=== PATIENT | female | born 1940 | race Caucasian/White ===

== ENCOUNTER → 2019-10-27 11:18 | Outpatient (BNVA) | payer MEDICARE, MEDICAID, SELFPAY | PROVIDERS: Family Provider Internal Medicine; PCP Internal Medicine; Visit Provider Internal Medicine Rheumatology | DX: M06.09 Rheumatoid arthritis without rheumatoid factor, multiple sites (principal); M15.9 Polyosteoarthritis, unspecified; E11.9 Type 2 diabetes mellitus without complications; I10 Essential (primary) hypertension; R77.8 Other specified abnormalities of plasma proteins; Z79.4 Long term (current) use of insulin | CPT/HCPCS: 99213 ==

== ENCOUNTER 2019-11-22 08:28 | Outpatient (CLI) | payer MEDICARE, MEDICAID, SELFPAY ==
--- NOTE | 2019-11-22 08:43 | CT_ITS ---
WS: [id number] CT PELVIS WITH CONTRAST. HISTORY: SACROCOCCYGEAL DISORDERS, coccygeal pain. TECHNIQUE: Contiguous imaging is performed of the pelvis with contrast. Coronal and sagittal reformat s are reviewed. All CT scans at [facility] use at least one of these dose optimization te chniques: automated exposure control; mA and/or kV adjustment per patient size (includes targeted exa ms where dose is matched to clinical indication); or iterative reconstruction. DLP: 828.12 mGycm COMPARISON: 01/02/2015 Contrast: Visipaque 95 mL IV. No soft tissue mass or free fluid or adenopathy within the pelvis. There is mild muscle atrophy. Exte nsive vascular calcifications in the distal aorta through the iliac arteries into the femoral arterie s. Urinary bladder is minimally distended. Visualized GI tract is negative. Mild bilateral narrowing of the foramen at L4-5 and L5-S1. Mild bilateral hip joint narrowing. No mas s or bone destruction. There is no evidence for osteomyelitis or tract extending to the sacrum. Large soft tissue ulceration described on 01/05/[address]/CT pelvis w con* [id number] IMPRESSION: 1. No soft tissue ulceration or osteomyelitis. 2. Mild muscular atrophy. 3. Severe atherosclerosis involving the iliac and femoral arteries.
[2019-11-22] MEDS: iodixanol 320 mg/mL 100mL Btl IV (09:26)
== END 2019-11-22 08:29 | disposition home or self-care (01) ==
LOC: RADWPI 08:33
PROVIDERS: Family Provider Internal Medicine; PCP Nurse Practitioner Family; Visit Provider Nurse Practitioner Family
DX: M62.50 Muscle wasting and atrophy, not elsewhere classified, unspecified site (principal); I70.209 Unspecified atherosclerosis of native arteries of extremities, unspecified extremity; M53.3 Sacrococcygeal disorders, not elsewhere classified
CPT/HCPCS: 72193; Q9967

== ENCOUNTER → 2019-12-21 15:07 | Outpatient (BNVA) | payer MEDICARE, MEDICAID, SELFPAY | PROVIDERS: Family Provider Internal Medicine; PCP Nurse Practitioner Family; Visit Provider Urology | DX: C67.1 Malignant neoplasm of dome of bladder (principal) | CPT/HCPCS: 81001 ==

== ENCOUNTER → 2020-02-15 13:58 | Outpatient (BNVA) | payer MEDICARE, MEDICAID, SELFPAY | PROVIDERS: Family Provider Internal Medicine; PCP Nurse Practitioner Family; Visit Provider Internal Medicine Rheumatology | DX: M06.09 Rheumatoid arthritis without rheumatoid factor, multiple sites (principal); Z79.899 Other long term (current) drug therapy | CPT/HCPCS: 36415; 80076; 82565; 85025; 85651 ==

== ENCOUNTER → 2020-03-27 13:23 | Outpatient (BNVA) | payer MEDICARE, MEDICAID, SELFPAY | PROVIDERS: Family Provider Internal Medicine; PCP Nurse Practitioner Family; Visit Provider Internal Medicine Rheumatology | DX: M06.00 Rheumatoid arthritis without rheumatoid factor, unspecified site (principal); Z79.899 Other long term (current) drug therapy; M19.041 Primary osteoarthritis, right hand; M19.042 Primary osteoarthritis, left hand; N18.9 Chronic kidney disease, unspecified | CPT/HCPCS: 99214 ==

== ENCOUNTER 2020-04-09 13:04 | Outpatient (CLI) | payer MEDICARE, MEDICAID, SELFPAY ==
[2020-04-09 15:28] LABS: Basophils % 0.5 %; Eosinophils # 0.1 10^3/uL (0.0-0.8); Eosinophils % 1.7 %; Hematocrit 34.4 % (37.0-47.0); Hemoglobin 10.6 g/dL (11.5-15.3); Lymphocytes # 1.5 10^3/uL (0.8-4.8); Lymphocytes % 19.7 %; Mean Corpuscular HGB Conc 30.8 g/dL (30.0-36.0); Mean Corpuscular Hemoglobin 28.8 pg (28.0-34.0); Mean Corpuscular Volume 93.5 fL (81-99); Mean Platelet Volume 9.1 fL (7.4-10.4); Monocytes # 0.5 10^3/uL (0.2-0.9); Monocytes % 7.1 %; Neutrophils # 5.4 10^3/uL (1.8-7.7); Neutrophils % 70.6 %; Nucleated Red Blood Cells % 0 %; Platelet Count 223 10^3/cmm (130-400); Red Blood Count 3.68 10^6/uL (4.1-5.3); Red Cell Distribution Width 13.2 % (12.1-15.1); White Blood Count 7.6 10^3/uL (4.0-10.0)
[2020-04-09 16:11] LABS: Alanine Aminotransferase 24 U/L (0-33); Albumin Level 3.9 g/dL (3.5-5.2); Alkaline Phosphatase 83 IU/L (35-105); Anion Gap 14.3 (5-19); Aspartate Amino Transferase 30 U/L (0-32); Blood Urea Nitrogen 34 mg/dL (8-23); Calcium 9.9 mg/dL (8.5-10.5); Carbon Dioxide 23 mmol/L (22-29); Chloride 108 mmol/L (98-107); Globulin 2.9 g/dL (1.3-4.6); Glucose 91 mg/dL (65-115); Immunoglobulin IGA 249 mg/dL (70-400); Immunoglobulin IGG 961 mg/dL (700-1600); Immunoglobulin IGM 328 mg/dL (40-230); Lactate Dehydrogenase 218 U/L (135-214); Osmolality Calculated 287 mOsm/kg (285-295); Potassium 5.3 mmol/L (3.5-5.1); Sodium 140 mmol/L (136-145); Total Bilirubin 0.2 mg/dL (0.15-1.2); Total Protein 6.8 g/dL (6.6-8.7)
[2020-04-09 16:27] LABS: Erythrocyte Sedimentation Rate 63 mm/hr (0-15)
[2020-04-09 16:38] LABS: Iron 87 ug/dL (37-145); Percent Saturation 30.1 % (20-50); Total Iron Binding Capacity 289 mcg/dl; Unsaturated Iron Binding 202 ug/dL (112-347)
[2020-04-09 16:54] LABS: Vitamin B12 653 pg/mL (232-1245)
--- NOTE | 2020-04-09 18:02 | ONC CON_ITS ---
Dr. Vicente New Patient Note Patient: Vika Nugent Unit #: [id number]: 1940 Dicatated By: Florencio Vicente M.D.Date of Visit: Apr 09, 2020 Onc MED New Patient/Consult Referring Physician: Florencio Vicente M.D. Chief Complaint: Monoclonal gammopathy. 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 She has longstanding rheumatoid arthritis which has been adequately managed with hydroxychloroquine. She also has degenerative arthritis. She has a history of superficial bladder cancer, initially diagnosed and treated with TURBT in August 2005. She has had multiple recurrences treated with fulguration. In 2010 she underwent lumpectomy/radiation for an invasive cancer of the right breast which was stage IA (T1a, N0, M0), ER/ND positive and HER-2./zee negative. Her other medical illnesses include hypertension, dyslipidemia, type 2 diabetes, and coronary artery disease with cardiomyopathy. In 2017, during the course of her follow-up in rheumatology clinic, she was noted to have some decline in her renal function. Her serum protein electrophoresis in August 2019 reported a poorly defined band, possibly an M spike, migrating in the gamma region. It quantitated at 0.2 g/dL. The serum immunofixation, though, reported no detectable monoclonal protein. Her creatinine at that point was up to 1.4 mg/dL. She was slightly anemic, hemoglobin 11.5 g. She has been feeling pretty good generally. She says her energy fluctuates, but she is able to do light work. ECOG score is 1. Her appetite has not been as good lately. Her weight is down a few pounds. She does not have fever or night sweats. She has some allergy related sinus symptoms. She does not complain of shortness of breath, cough, or chest pain. She has no GI or complaints. She has joint pain, mainly in the hands and shoulders. She also has lower back pain. She had sustained a left hip injury a couple of years ago, and that tends to hurt if she walks a lot. She reports having numbness/tingling in her feet. Past Medical History: Her medical history includes cardiomyopathy, chronic kidney disease, coronary artery disease, degenerative arthritis, history of breast cancer, hypertension, left bundle branch block, rheumatoid arthritis, superficial bladder cancer, and type II diabetes. Past Surgical History: Her surgical/procedural history includes bilateral cataract excisions, cystoscopy with fulguration of recurrent bladder cancer on multiple occasions, carpal tunnel release on the right in 2018, excision of pilonidal cyst in 2013, insertion of [place] drain bilaterally for persistent pleural effusion in 2013, right breast lumpectomy with axillary sentinel lymph node biopsy in 2010, coronary angioplasty/stent placement in 2004, TURBT for superficial bladder cancer in 2004, and hysterectomy with bilateral salpingo-oophorectomy in 1963. Medications: Atorvastatin Calcium 1 Tablet (of 40 mg) Oral daily, Calcium 1 Tablet daily, Furosemide (20 mg) Tablet Oral Take as Directed, Hydroxychloroquine Sulfate 1 Tablet (of 200 mg) Oral daily, Isosorbide Mononitrate 1 Tablet (of 10 mg) Oral b.i.d., Losartan Potassium 1 Tablet (of 100 mg) Oral daily, methIMAzole 1 Tablet (of 5 mg) Oral daily, Metoprolol 0.5 Tablet (of 100 mg) b.i.d., Multivitamin 1 Tablet Oral daily, Spironolactone 1 Tablet (of 25 mg) Oral daily, Tresiba 30 Units (of 100 Units/mL) Subcutaneous daily, Vitamin C 1 Capsule (of 500 mg) Oral daily Allergies: ACTOS, Fenofibrate, and metroNIDAZOLE. Social History: Ms. Nugent is . She is a non-smoker. She does not drink alcohol. Family History: Father age 65. She is not certain of the cause. She thinks it may have been some type of arterial embolism. Mother with complications of diabetes at age 73. A sister and 2 brothers also had diabetes. One sister of breast cancer at age 52. A son of renal cell cancer. Review Of Symptoms: Constitutional - She is feeling okay. She does some light work at home. Her appetite is good and weight is stable. No fever, night sweats, or hot flashes. ECOG score is 1, Eyes - No change in vision, ENMT - No hearing loss or tinnitus. She has some allergy related sinus symptoms. No mouth sores. No sore throat or difficulty swallowing, Hematologic/Lymphatic - She has some bruising, Respiratory - No shortness of breath. No cough. No pleuritic pain or hemoptysis, Cardiovascular - No angina pain. No palpitations, Gastrointestinal - No nausea or vomiting. No heartburn or acid reflux. No diarrhea or constipation. No blood in the stool or black stools, Genitourinary (F) - No dysuria or hematuria. No urinary frequency. No urgency or incontinence, Musculoskeletal - She is having joint pain and she has pain in her lower back, Integumentary - No skin complications, Neurologic - No headache. She sometimes has dizziness when she first wakes up. She has some numbness and tingling in her hands and feet. No other focal neurologic symptoms, Psychiatric - No anxiety or depression. No insomnia. Vital Signs: Performed on Apr 09, 2020 13:56: 5, 38.52 (HIGH), 2.05 sq.m, 64.00 in, 97 %, 66 /min, 24 /min, 140/59 mm(hg), 99.1 F (HIGH), and 224.4 lbs (LOW). Physical Examination: Constitutional - She looks pretty good generally, Eyes - Sclerae nonicteric. Conjunctivae clear, ENMT - No lesions noted in the oral cavity, Neck - No mass or thyromegaly, Hematologic/Lymphatic - No cervical, clavicular, or axillary adenopathy, Respiratory - Lungs are clear with good air movement bilaterally, Cardiovascular - Heart rhythm is regular. There is a split S1. There is no murmur, gallop, or rub noted, Abdomen - Soft and non-tender. Liver and spleen are not enlarged. There is no abdominal mass or ascites noted and there is no inguinal adenopathy, Back/Spine - No spine or CVA tenderness noted, Extremities - No edema. There are venous stasis changes bilaterally. Pedal pulses are palpable bilaterally, Integumentary - No rashes. No suspicious skin lesions noted, Neurologic - No focal neurologic deficits noted. Impression: 1. 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 2. She has been mildly anemic and she has developed chronic kidney disease within the past 2 years. 3. She has longstanding rheumatoid arthritis, which has been adequately managed with hydroxychloroquine. 4. She has multiple cystoscopies with fulguration for recurrent superficial bladder cancer. 5. In 2010 she underwent lumpectomy/radiation for invasive cancer of the right breast, stage IA (T1a, N0, M0), ER/ND positive and HER-2/zee negative. She decilned adjuvant hornonal therapy. Her other medical illnesses include: 6. Hypertension. 7. Dyslipidemia. 8. Type 2 diabetes. 9. Coronary artery disease with cardiomyopathy. 10. Chronic kidney disease. 11. Degenerative arthritis. Plan: The laboratory findings and clinical implications were reviewed with the patient. 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 As she also has mild anemia and has had decline in her renal function, myeloma does need to be excluded. She will have additional laboratory studies today to include CBC, comprehensive metabolic profile, serum protein electrophoresis with immunofixation, quantitative immunoglobulin levels, serum free light chain assay, 24-hour urine protein electrophoresis, serum iron studies, and B12 level. She will have further evaluation as indicated. Signed By: Florencio Vicente M.D. <<Signature on File>>
[2020-04-10 14:45] LABS: KAPPA LIGHT CHAIN, FREE, SERUM 32.6 mg/L (3.3-19.4); KAPPA/LAMBDA LIGHT CHAINS FREE 1.88 (0.26-1.65); LAMBDA LIGHT CHAIN, FREE, SERU 17.3 mg/L (5.7-26.3)
[2020-04-12 07:21] LABS: PROTEIN, TOTAL 6.4 g/dL (6.1-8.1)
[2020-04-13 13:05] LABS: ALBUMIN 3.3 g/dL (3.8-4.8); ALPHA 1 GLOBULIN 0.3 g/dL (0.2-0.3); ALPHA 2 GLOBULIN 0.9 g/dL (0.5-0.9); BETA 1 GLOBULIN 0.4 g/dL (0.4-0.6); BETA 2 GLOBULIN 0.4 g/dL (0.2-0.5)
== END 2020-04-09 13:05 | disposition home or self-care (01) ==
PROVIDERS: PCP Nurse Practitioner Family; Visit Provider Internal Medicine Medical Oncology
DX: D47.2 Monoclonal gammopathy (principal); E11.22 Type 2 diabetes mellitus with diabetic chronic kidney disease; I12.9 Hypertensive chronic kidney disease with stage 1 through stage 4 chronic kidney disease, or unspecified chronic kidney disease; N18.9 Chronic kidney disease, unspecified; D63.1 Anemia in chronic kidney disease; I25.10 Atherosclerotic heart disease of native coronary artery without angina pectoris; I11.9 Hypertensive heart disease without heart failure; I43 Cardiomyopathy in diseases classified elsewhere; M06.9 Rheumatoid arthritis, unspecified; Z85.3 Personal history of malignant neoplasm of breast; Z85.51 Personal history of malignant neoplasm of bladder; E78.5 Hyperlipidemia, unspecified; M19.90 Unspecified osteoarthritis, unspecified site
CPT/HCPCS: 36415; 80053; 82607; 82784; 83540; 83550; 83615; 83883; 84155; 84165; 85025; 85045; 85651; 99204

== ENCOUNTER 2020-04-10 10:59 | Outpatient (CLI) | payer MEDICARE, MEDICAID, SELFPAY ==
--- NOTE | 2020-04-10 11:00 | XR_ITS ---
WS: [id number] HAND LEFT TECHNIQUE: 3 views of the left hand CLINICAL INFORMATION: rheumatoid arthritis COMPARISON: None. FINDINGS: Joint space narrowing worse involving the DIP joints with a few erosions most prominent involving the third DIP joint. Less prominent involvement of the PIP joints. A few small erosions involving the me tacarpal heads. Mild narrowing of the radiocarpal joint. Vascular calcification. XR/XR hand LT min 3V* [id number] IMPRESSION: Findings compatible with rheumatoid arthritis.
--- NOTE | 2020-04-10 11:00 | XR_ITS ---
WS: [id number] FOOT LEFT TECHNIQUE: 3 views of the left foot CLINICAL INFORMATION: rheumatoid arthritis COMPARISON: None. FINDINGS: Osteopenia. Narrowing of the DIP joints. Hammertoe deformities. Mild narrowing of the PIP joints. A f ew small periarticular erosions involving the MTP joints and Metatarsal heads. Vascular calcification . Hypertrophic changes at the first MTP. More prominent erosive changes involving the fifth proximal phalanx. Prominent plantar calcaneal spur. Vascular calcification. XR/XR foot LT min 3V* [id number] IMPRESSION: Findings compatible with rheumatoid arthritis
--- NOTE | 2020-04-10 11:00 | XR_ITS ---
WS: [id number] FOOT RIGHT TECHNIQUE: 3 views of the right foot CLINICAL INFORMATION: rheumatoid arthritis COMPARISON: None. FINDINGS: Osteopenia. Narrowing of the DIP joints. Hammertoe deformities. Mild narrowing of the PIP joints. MTP joints are normal. A few tiny erosions involving the metatarsal heads. Mild hallux valgus. Plantar c alcaneal spurring. Prominent Achilles enthesophyte. Vascular calcification. XR/XR foot RT min 3V* [id number] IMPRESSION: Findings compatible with rheumatoid arthritis
--- NOTE | 2020-04-10 11:00 | XR_ITS ---
WS: [id number] HAND RIGHT TECHNIQUE: 3 views of the right hand CLINICAL INFORMATION: rheumatoid arthritis COMPARISON: None. FINDINGS: Mild degenerative narrowing at the radiocarpal joint. Vascular calcification. Joint space narrowing p articularly erosions worse involving the DIP joints. Less prominent involvement of the PIP joints. Me tacarpal heads are normal in appearance with a few tiny erosions. Normal carpal bones. XR/XR hand RT min 3V* [id number] IMPRESSION: Findings compatible with rheumatoid arthritis.
== END 2020-04-10 11:00 | disposition home or self-care (01) ==
LOC: RADWPI 11:05
PROVIDERS: Family Provider Nurse Practitioner Family; PCP Nurse Practitioner Family; Visit Provider Internal Medicine Rheumatology
DX: M06.872 Other specified rheumatoid arthritis, left ankle and foot (principal); M06.871 Other specified rheumatoid arthritis, right ankle and foot; M06.842 Other specified rheumatoid arthritis, left hand; M06.841 Other specified rheumatoid arthritis, right hand
CPT/HCPCS: 73130; 73630

== ENCOUNTER → 2020-06-27 12:51 | Outpatient (BNVA) | payer MEDICARE, MEDICAID, SELFPAY | PROVIDERS: PCP Nurse Practitioner Family; Visit Provider Urology | DX: D49.4 Neoplasm of unspecified behavior of bladder (principal) | CPT/HCPCS: 81001 ==

== ENCOUNTER 2020-07-02 12:37 | Outpatient (CLI) | payer MEDICARE, MEDICAID, SELFPAY ==
--- NOTE | 2020-07-02 12:50 | MM_ITS ---
WS: [id number] DIAGNOSTIC BILATERAL DIGITAL MAMMOGRAM WITH CAD HISTORY: HX OF BREAST CANCER COMPARISON: 02/09/2019 and 01/11/2018 TECHNIQUE: Bilateral craniocaudad, mediolateral oblique, and mediolateral views are submitted. Comput er aided detection utilized. Breast composition: There are scattered areas of fibroglandular density. Volume loss in the RIGHT lidia ast. Postsurgical changes in the inferior posterior RIGHT breast. Dystrophic calcifications with dist ortion is stable over multiple prior examinations. Bilateral breast arterial calcifications. MM/[place] [id number] IMPRESSION: BI-RADS: 2-Benign FOLLOW UP: 1 Year Follow-up
== END 2020-07-02 12:38 | disposition home or self-care (01) ==
LOC: RADSHAW 12:40
PROVIDERS: PCP Nurse Practitioner Family; Visit Provider Nurse Practitioner Family
DX: Z85.3 Personal history of malignant neoplasm of breast (principal)
CPT/HCPCS: 77066

== ENCOUNTER → 2020-07-30 10:22 | Outpatient (BNVA) | payer MEDICARE, MEDICAID, SELFPAY | PROVIDERS: Family Provider Internal Medicine; PCP Nurse Practitioner Family; Visit Provider Internal Medicine Rheumatology | DX: M06.09 Rheumatoid arthritis without rheumatoid factor, multiple sites (principal); Z79.899 Other long term (current) drug therapy; N18.9 Chronic kidney disease, unspecified; D47.2 Monoclonal gammopathy | CPT/HCPCS: 99214 ==

== ENCOUNTER → 2020-12-27 13:40 | Outpatient (BNVA) | payer MEDICARE, MEDICAID, SELFPAY | PROVIDERS: Family Provider Internal Medicine; PCP Nurse Practitioner Family; Visit Provider Internal Medicine Rheumatology | DX: M06.09 Rheumatoid arthritis without rheumatoid factor, multiple sites (principal); Z79.899 Other long term (current) drug therapy; M19.041 Primary osteoarthritis, right hand; M19.042 Primary osteoarthritis, left hand; N18.9 Chronic kidney disease, unspecified | CPT/HCPCS: 99214 ==

== ENCOUNTER → 2021-01-30 14:16 | Outpatient (BNVA) | payer MEDICARE, MEDICAID, SELFPAY | PROVIDERS: Family Provider Internal Medicine; PCP Nurse Practitioner Family; Visit Provider Urology | DX: N18.9 Chronic kidney disease, unspecified (principal); C67.1 Malignant neoplasm of dome of bladder | CPT/HCPCS: 81003 ==

== ENCOUNTER 2021-06-17 11:16 | Outpatient (CLI) | payer MEDICARE, MEDICAID, SELFPAY ==
--- NOTE | 2021-06-17 11:25 | USCV_ITS ---
Vika Nugent Age: 80 Gender: F : 1940 Exam Date: 06/17/2021 11:42 Ordering Phys: Shannon Tapia NP Technologist: [place] [facility] [place]: LT LEG PAIN AND SWELLING HISTORY: Erythema. LT PROCEDURES: The venous duplex Doppler examination of both lower extremities was performed in the standard fashion. FINDINGS: Normal 2-D Doppler and augmentation and compressibility throughout the lower extremity venous structures. Additional imaging through the proximal calf veins also reveals no thrombus. Limited evaluation of the greater saphenous vein is patent with no thrombus.. CONCLUSIONS No DVT bilateral lower extremities. Dr. Randi Dove DO (Electronically Signed) Final Date: 17 June 2021 12:17 S
== END 2021-06-17 11:17 | disposition home or self-care (01) ==
LOC: RAD 11:22
PROVIDERS: PCP Nurse Practitioner Family; Visit Provider Nurse Practitioner Family
DX: M79.672 Pain in left foot (principal); M79.605 Pain in left leg; M79.89 Other specified soft tissue disorders
CPT/HCPCS: 93970

== ENCOUNTER → 2021-06-18 15:55 | Outpatient (BNVA) | payer MEDICARE, MEDICAID, SELFPAY | PROVIDERS: PCP Nurse Practitioner Family; Visit Provider Podiatrist Foot & Ankle Surgery | DX: M79.672 Pain in left foot (principal) | CPT/HCPCS: 73630 ==

== ENCOUNTER → 2021-07-08 09:40 | Outpatient (BNVA) | payer MEDICARE, MEDICAID, SELFPAY | PROVIDERS: PCP Nurse Practitioner Family; Visit Provider Internal Medicine Rheumatology | DX: M06.09 Rheumatoid arthritis without rheumatoid factor, multiple sites (principal); Z79.899 Other long term (current) drug therapy; M19.041 Primary osteoarthritis, right hand; M19.042 Primary osteoarthritis, left hand; N18.9 Chronic kidney disease, unspecified; Z71.89 Other specified counseling | CPT/HCPCS: 99213; 99214 ==

== ENCOUNTER → 2021-07-30 11:15 | Outpatient (BNVA) | payer MEDICARE, MEDICAID, SELFPAY | PROVIDERS: PCP Nurse Practitioner Family; Visit Provider Podiatrist Foot & Ankle Surgery | DX: S92.252A Displaced fracture of navicular [scaphoid] of left foot, initial encounter for closed fracture (principal); X58.XXXA Exposure to other specified factors, initial encounter | CPT/HCPCS: 73630 ==

== ENCOUNTER 2021-09-10 14:46 | Outpatient (CLI) | payer MEDICARE, MEDICAID, SELFPAY ==
--- NOTE | 2021-09-10 14:55 | USCV_ITS ---
Vika Nugent Age: 81 Gender: F : 1940 Exam Date: 09/10/2021 15:22 Ordering Phys: Johnson Rider MD Technologist: LULA Exam Location: [facility] – [place] Indication: LBBB BP: 134 / 64 HR: 83 Rhythm: Sinus Technical Quality: Adequate MEASUREMENTS (Male / Female) Normal Values 2D ECHO LV Diastolic Diameter PLAX 5.6 cm 4.2 - 5.9 / 3.9 - 5.3 cm LV Systolic Diameter PLAX 4.6 cm IVS Diastolic Thickness 1.0 cm 0.6 - 1.0 / 0.6 - 0.9 cm IVS Systolic Thickness 1.4 cm LVPW Diastolic Thickness 1.7 cm 0.6 - 1.0 / 0.6 - 0.9 cm LVPW Systolic Thickness 1.9 cm LVOT Diameter 2.0 cm LV Ejection Fraction 2D Teich 37.5 % LA Diameter 2.7 cm LA Width 4.0 cm LA Height 3.7 cm RA Width 3.4 cm RA Height 3.5 cm Aorta at Sinotubular Diameter 2.1 cm M-MODE Aortic Annulus Diameter 2.7 cm LA Ao Ratio MM 1.0 MV E Point Septal Separation 1.5 cm DOPPLER AV Peak Velocity 153.0 cm/s LVOT Peak Velocity 66.0 cm/s AV Area Cont Eq vti 1.2 cm squared AV Area Cont Eq pk 1.4 cm squared TR Peak Velocity 330.0 cm/s TR Peak Gradient 43.6 mmHg Right Atrial Pressure 3.0 mmHg Pulmonary Artery Systolic Pressu 46.6 mmHg PV Peak Velocity 88.0 cm/s RV Acceleration Time 0.1 s RV Ejection Time 0.3 s RV AcT/ET 0.4 FINDINGS Left Ventricle LV is dilated. LV systolic function is moderate to severely decreased with EF of 35%. Moderate to severe global hypokinesis. Septal motion is consistent with conduction abnormality. Right Ventricle The right ventricle is normal in size and function. Right Atrium The right atrium is normal in size. Left Atrium The left atrium is normal in size. Mitral Valve Grossly thickened valve without significant stenosis or prolapse. There is trace mitral regurgitation. Aortic Valve Thickened aortic valve without significant stenosis. There is no aortic regurgitation. Tricuspid Valve Not well visualized. Insufficient TR jet to calculate RVSP Pulmonic Valve Not visualized Pericardium Normal pericardium without effusion. Aorta Normal ascending aorta dimension. CONCLUSIONS Technically limited quality echocardiogram because of poor ultrasonic windows. Left ventricle is dilated LV systolic function is moderate to severely reduced with EF of 35% Trace mitral regurgitation Valves are not well visualized Compared to prior echocardiocardiogram from 01/14/2017, no significant changes are seen. Donal Hart MD (Electronically Signed) Final Date: 21 September 2021 19:08 S
== END 2021-09-10 14:47 | disposition home or self-care (01) ==
PROVIDERS: PCP Nurse Practitioner Family; Visit Provider Family Medicine
DX: I44.7 Left bundle-branch block, unspecified (principal); I34.0 Nonrheumatic mitral (valve) insufficiency
CPT/HCPCS: 93306

== ENCOUNTER 2021-10-07 13:55 | Outpatient (CLI) | payer MEDICARE, MEDICAID, SELFPAY ==
--- NOTE | 2021-10-07 14:03 | XR_ITS ---
WS: [id number] Exam: XR DEXA axial skeleton* [id number] Date/Time of Exam: 10/07/2021 2:04 PM Reason For Exam: AGE-RELATED OSTEOPOROSIS WITHOUT CURRENT PATHOLOGICAL FRACTU DEXA BONE DENSITOMETRY [place] The L1-L4 bone mineral density measures 1.514 g/cm2. This corresponds to a T score of 2.8 and Z score of 3.7. Left femoral neck bone mineral density measures 0.903 g/cm2. This corresponds to T score of -0.8 and Z score of 0.6. Right femoral neck bone mineral density measures 0.959 g/cm2. This corresponds to a T score of -0.4 a nd Z score of 1.0. Mean femoral neck bone mineral density measures 0.931 g/cm2. This corresponds to a T score of -0.6 an d Z score of 0.8. XR/XR DEXA axial skeleton* [id number] IMPRESSION: Bone mineral density lies in the normal range. No osteopenia is observed at th is time. Refer to detailed summary.
== END 2021-10-07 13:56 | disposition home or self-care (01) ==
PROVIDERS: PCP Nurse Practitioner Family; Visit Provider Nurse Practitioner Family
DX: M81.0 Age-related osteoporosis without current pathological fracture (principal)
CPT/HCPCS: 77080

== ENCOUNTER 2021-10-31 10:54 | Outpatient (CLI) | payer MEDICARE, MEDICAID, SELFPAY ==
[2021-10-31 11:20] LABS: Basophils % 0.6 %; Eosinophils # 0.1 10^3/uL (0.0-0.8); Hematocrit 35.3 % (37.0-47.0); Hemoglobin 10.9 g/dL (11.5-15.3); Lymphocytes # 1.5 10^3/uL (0.8-4.8); Lymphocytes % 22.5 %; Mean Corpuscular HGB Conc 30.9 g/dL (30.0-36.0); Mean Corpuscular Hemoglobin 28.1 pg (28.0-34.0); Mean Platelet Volume 9.1 fL (7.4-10.4); Monocytes # 0.4 10^3/uL (0.2-0.9); Monocytes % 6.7 %; Neutrophils # 4.47 10^3/uL (1.8-7.7); Neutrophils % 67.9 %; Nucleated Red Blood Cells % 0 %; Platelet Count 189 10^3/cmm (130-400); Red Blood Count 3.88 10^6/uL (4.1-5.3); Red Cell Distribution Width 12.6 % (12.1-15.1); White Blood Count 6.6 10^3/uL (4.0-10.0)
[2021-10-31 11:40] LABS: Alanine Aminotransferase 20 U/L (0-33); Albumin Level 3.4 g/dL (3.5-5.2); Alkaline Phosphatase 85 IU/L (35-105); Aspartate Amino Transferase 29 U/L (0-32); C Reactive Protein 2.1 mg/L (0.0-4.9); Globulin 3.1 g/dL (1.3-4.6); Total Bilirubin 0.2 mg/dL (0.15-1.2); Total Protein 6.5 g/dL (6.6-8.7)
== END 2021-10-31 10:55 | disposition home or self-care (01) ==
LOC: LAB 10:58
PROVIDERS: PCP Nurse Practitioner Family; Visit Provider Internal Medicine Rheumatology
DX: M06.09 Rheumatoid arthritis without rheumatoid factor, multiple sites (principal); Z79.899 Other long term (current) drug therapy
CPT/HCPCS: 36415; 80076; 82565; 85025; 86140

== ENCOUNTER 2021-12-03 10:27 | Outpatient (CLI) | payer MEDICARE, MEDICAID, SELFPAY ==
--- NOTE | 2021-12-03 10:57 | MM_ITS ---
WS: [id number] DIAGNOSTIC BILATERAL DIGITAL MAMMOGRAM WITH CAD HISTORY: HX OF BREAST CA, RIGHT breast cancer. COMPARISON: 07/02/2020, 07/12/2019 TECHNIQUE: Bilateral craniocaudad, mediolateral oblique, and mediolateral views are submitted. Comput er aided detection utilized. Breast composition: There are scattered areas of fibroglandular density. Marked bilateral breast ariadne rial calcifications. There are additional benign scattered coarse calcifications. No mass identified. MM/[place] [id number] IMPRESSION: BI-RADS: 2-Benign FOLLOW UP: 1 Year Follow-up
== END 2021-12-03 10:28 | disposition home or self-care (01) ==
PROVIDERS: PCP Nurse Practitioner Family; Visit Provider Nurse Practitioner Family
DX: Z85.3 Personal history of malignant neoplasm of breast (principal)
CPT/HCPCS: 77066

== ENCOUNTER → 2021-12-30 13:26 | Outpatient (BNVA) | payer MEDICARE, MEDICAID, SELFPAY | PROVIDERS: PCP Nurse Practitioner Family; Visit Provider Internal Medicine Rheumatology | DX: M06.09 Rheumatoid arthritis without rheumatoid factor, multiple sites (principal); M15.9 Polyosteoarthritis, unspecified; N39.41 Urge incontinence; Z79.899 Other long term (current) drug therapy; N18.9 Chronic kidney disease, unspecified; Z71.89 Other specified counseling | CPT/HCPCS: 99214 ==

== ENCOUNTER → 2022-03-19 13:16 | Outpatient (BNVA) | payer MEDICARE, MEDICAID, SELFPAY | PROVIDERS: PCP Nurse Practitioner Family; Visit Provider Thoracic Surgery (Cardiothoracic Vascular Surgery) | DX: E11.622 Type 2 diabetes mellitus with other skin ulcer (principal); L97.821 Non-pressure chronic ulcer of other part of left lower leg limited to breakdown of skin; I96 Gangrene, not elsewhere classified; L97.811 Non-pressure chronic ulcer of other part of right lower leg limited to breakdown of skin | CPT/HCPCS: 97597; 99203; 99213; A6212 ×2 ==

== ENCOUNTER → 2022-03-26 13:46 | Outpatient (BNVA) | payer MEDICARE, MEDICAID, SELFPAY | PROVIDERS: PCP Nurse Practitioner Family; Visit Provider Nurse Practitioner Family | DX: E11.622 Type 2 diabetes mellitus with other skin ulcer (principal); L97.811 Non-pressure chronic ulcer of other part of right lower leg limited to breakdown of skin; Z09 Encounter for follow-up examination after completed treatment for conditions other than malignant neoplasm | CPT/HCPCS: 99212 ==

== ENCOUNTER → 2022-04-02 09:54 | Outpatient (BNVA) | payer MEDICARE, MEDICAID, SELFPAY | PROVIDERS: PCP Nurse Practitioner Family; Visit Provider Nurse Practitioner Family | DX: Z09 Encounter for follow-up examination after completed treatment for conditions other than malignant neoplasm (principal) | CPT/HCPCS: 99212 ==

== ENCOUNTER 2022-04-28 23:25 | Emergency (ER) | payer MEDICARE, MEDICAID, SELFPAY ==
[2022-04-28 23:56] VITALS: BMI 36.6
--- NOTE | 2022-04-29 00:03 | ED_ITS ---
HPI - Abdominal Pain General: Chief Complaint: Abdominal Pain Stated Complaint: CONSTIPATION Time Seen by Provider: 04/28/22 23:28 Source: patient and EMS Mode of arrival: EMS Limitations: no limitations History of Present Illness: 81-year-old female states that she has not had a bowel movement last 3 to 4 days. She states she been having some lower abdominal cramping and feels like she needs to go. States the pain is a 3 out of 10 she had some nausea denies any vomiting. She states she has had a small bowel obstruction in the past but this does not feel similar. He denies any fever denies any radiation of her pain denies any dysuria. Associated Symptoms: Reports constipation; Denies chills, dysuria and fever(s) Review of Systems Const: Denies: fever(s), chills, body aches or change in appetite Eyes: Denies: blurry vision or eye discomfort ENMT: Denies: throat pain or dental pain Card: Denies: chest pain Resp: Denies: dyspnea GI: Reports: abdominal pain and constipation : Denies: dysuria Musc: Denies: neck pain or back pain Skin/Breast: Denies: rash Neuro: Denies: headache(s) Psych: Denies: depression Christ/Lymph: Denies: easy bruising All/Imm: Denies: urticaria PFSH ED PFSH: Medical History (Updated 04/29/22 @ 00:42 by Sathya Feng MD) ASHD (arteriosclerotic heart disease) Back pain, chronic Bladder neoplasm Breast CA 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 Headley History of excision of pilonidal cyst History of hysterectomy History of lumpectomy of right breast Family History Sister Cancer breast cancer Brother Diabetes Social History Smoking and tobacco status: never smoked Alcohol intake: never Lives independently: Yes Marital status: / History of recent travel: No Current gender identity: Female Roopa/Oriental Orthodox: Hoahaoism Physical Exam Const: COMMON NORMALS: no acute distress, patient oriented x3 and healthy appearing HENMT: COMMON NORMALS: normocephalic and atraumatic HEAD & SCALP: normocephalic and atraumatic Eye: COMMON NORMALS: Equal, round and reactive pupils present and EOMs intact bilaterally PUPIL: Yes Equal, round and reactive pupils present Neck/C-Spine: COMMON NORMALS: full ROM and supple Chest: COMMONS NORMALS: normal inspection of the chest and normal palpation of entire chest wall Resp: COMMON NORMALS: normal respiratory effort, No retractions, No use of accessory muscles and clear to auscultation bilaterally AUSCULTATION: clear to auscultation bilaterally Cardio: COMMON NORMALS: regular rate, regular rhythm and No murmurs present (Cardio) RATE: regular rate RHYTHM: regular rhythm GI: COMMON NORMALS: Normal to inspection, nondistended, normoactive bowel sounds present, Soft to palpation and no masses PALPATION: Yes Soft to palpation OTHER: mild lower abd tenderness Extremity: COMMON NORMALS: normal to inspection and full ROM Neuro: COMMON NORMALS: patient oriented x3, moves all extremities and no focal motor deficits Psych: COMMON NORMALS: mental status grossly normal, Normal thought process present and cooperative THOUGHT PROCESS: Normal thought process present Skin: COMMON NORMALS: no rashes or lesions noted and no wounds GENERAL SKIN EXAM: no rashes or lesions noted MDM - Abdominal Pain Medical Decision Making Patient presents with constipation shortly after she is here she had a large bowel movement and her symptoms of completely resolved. KUB here is normal she refused blood work she states she feels much better and would like to just go home I feel she is stable for discharge her exam now is benign she is return if worsening she understands agrees to plan. Discharge Plan Discharge Patient Disposition: Home Clinical Impression: Constipation Qualifiers: Constipation type: unspecified constipation type Qualified Code(s): K59.00 - C onstipation, unspecified Condition: Stable Prescriptions: No Action calcium carbonate-vitamin D3 600 mg(1,500mg) -500 unit capsule PO DAILY 0RF aspirin [Adult Low Dose Aspirin] 81 mg tablet,delayed release (DR/EC) 162 mg PO DAILY 0RF methimazole 5 mg tablet 5 mg PO DAILY 0RF cholecalciferol (vitamin D3) 1,000 unit capsule 2,000 unit PO ONCE 0RF amlodipine 5 mg tablet 5 mg PO DAILY 0RF spironolactone 25 mg tablet 25 mg PO DAILY 0RF acetaminophen [Tylenol Extra Strength] 500 mg tablet 500 mg PO Q6H PRN0RF melatonin 5 mg capsule PO .at bedtime 0RF atorvastatin [Lipitor] 40 mg tablet 40 mg PO DAILY 0RF oxybutynin chloride 5 mg tablet 5 mg PO BID PRN0RF hydroxychloroquine 200 mg tablet 200 mg PO DAILY Qty: 90 1RF Tresiba FlexTouch U-200 200 unit/mL (3 mL) insulin pen 30 unit SUBCUT Q24H 30 Days Qty: 4.5 3RF Rx Instructions: inject 30 ml subcutaneous every day pen needle, diabetic [BD Ultra-Fine Leilani Pen Needle] 32 gauge x 5/32 needle See Rx Instructions .ROUTE .COMPLEX Qty: 100 0RF Dose Instruction: USE 1 DIRECTED FOR ADMINISTRATION OF TRESIBA Rx Instructions: USE 1 DIRECTED FOR ADMINISTRATION OF TRESIBA Contour Next Test Strips Strip See Rx Instructions .ROUTE .COMPLEX Qty: 100 5RF Dose Instruction: USE 1 STRIP TO CHECK GLUCOSE TWICE DAILY Rx Instructions: USE 1 STRIP TO CHECK GLUCOSE TWICE DAILY metoprolol succinate 100 mg tablet extended release 24 hr 50 mg PO BID Qty: 90 2RF Discharge Orders: Discharge ED (Routine); Ordered 04/29/22 Ordered By: Sathya Feng Referrals: Shannon Tapia NP [Primary Care Provider] - 1-3 days Discharge Diet: Advance as tolerated Discharge Activity: Resume usual activity Patient Instructions: Constipation (ED) Coding Level of Care Code ED Accounting Manager Assistant Controller for Chg Fwd Exam Comprehensive
--- NOTE | 2022-04-29 00:18 | XRR_ITS ---
PROCEDURE INFORMATION: Exam: XR Abdomen Exam date and time: 04/29/2022 12:27 AM Age: 81 years old Clinical indication: Constipation TECHNIQUE: Imaging protocol: Radiologic exam of the abdomen. Views: Frontal supine view of the abdomen. 1 View. COMPARISON: CR Abdomen Series Acute [id number] 11/03/2017 8:41 AM FINDINGS: Gastrointestinal tract: Mild gaseous distention of the colon with overall nonobstructive bowel gas pattern. No substantial formed colonic stool burden is appreciated. Bones/joints: Unremarkable. XR/XR KUB portable [id number] IMPRESSION: Mild gaseous distention of the colon with overall nonobstructive bowel gas pattern. No substantial formed colonic stool burden is appreciated.
[2022-04-29 02:33] VITALS: BP 141/58; PULSE 100; RESP 18; O2SAT 95
[2022-04-29 02:59] VITALS: BP 141/58; PULSE 100; RESP 18; O2SAT 95
[2022-04-29 03:19] LABS: Glucose Point of Care 141 mg/dL (70-110)
== END 2022-04-29 03:01 | disposition home or self-care (01) ==
PROVIDERS: Emergency Provider Emergency Medicine; PCP Nurse Practitioner Family
DX: K59.00 Constipation, unspecified (principal); Z79.82 Long term (current) use of aspirin; Z79.4 Long term (current) use of insulin; Z85.3 Personal history of malignant neoplasm of breast; Z85.51 Personal history of malignant neoplasm of bladder; E13.9 Other specified diabetes mellitus without complications; E78.5 Hyperlipidemia, unspecified; I10 Essential (primary) hypertension
CPT/HCPCS: 36416; 74018; 82962; 99284

== ENCOUNTER → 2022-05-06 13:07 | Outpatient (BNVA) | payer MEDICARE, MEDICAID, SELFPAY | PROVIDERS: PCP Nurse Practitioner Family; Visit Provider Clinical Nurse Specialist Adult Health | DX: N18.9 Chronic kidney disease, unspecified (principal) | CPT/HCPCS: 80069; 82310; 83970; 85025 ==

== ENCOUNTER → 2022-05-07 09:00 | Outpatient (BNVA) | payer MEDICARE, MEDICAID, SELFPAY | PROVIDERS: PCP Nurse Practitioner Family; Visit Provider Clinical Nurse Specialist Adult Health | DX: N18.9 Chronic kidney disease, unspecified (principal) | CPT/HCPCS: 82043 ==